=== PATIENT | male | born 1955 | race Two or more races ===

== ENCOUNTER → 2021-03-06 | Outpatient (CLI) | payer MEDICARE ==
[2021-03-06 10:39] LABS: CHOL/HDL RATIO 1.9; LDL/HDL RATIO 0.7 (0.5-3.0)
== END | disposition home or self-care (01) ==
LOC: LAB 09:48
PROVIDERS: ATTEND Registered Nurse
DX: R73.03 Prediabetes (principal); E78.5 Hyperlipidemia, unspecified
CPT/HCPCS: 36415; 80061; 83036